=== PATIENT | male | born 1990 | race Caucasian/White ===

== ENCOUNTER 2024-02-14 22:43 | Emergency (ER) | payer OTHER, SELFPAY ==
--- OUTSIDE RECORDS SUMMARY | 2024-02-14 22:47 | XMS REPORT | Continuity of Care Document ---
Author Name Unknown Address [address] [facility] [address] [place] [address] [facility] thconnect Address [address] [facility] [address] [facility] [address] [place] [address] Care Team Providers Care Post Splitter Name Role Phone PCP, PATIENT DOES NOT HAVE A Primary Care Physic nicko Unavailable FAISAL KAPLAN Attending Clinician Unavailable Faisal Kaplan MD Attending Clinician [phone] Dot Hoang Attending Clinician Unavailable Sj Rogers Attending Clinician Unavailable Kranthi Gonzalez Attending Clinician Unavailable FAISAL KAPLAN Admitting Clinician Unavailable Physician, No Primary or Family Admitting Clinic nicko Unavailable No, Doc Admitting Clinician Unavailable Payers Payer Name Policy Type Policy Number Effective Date Expirati on Date Source Allergies, Adverse Reactions, Alerts Allergy Name Allergy Type Status Severity Reaction(s) Onset Date Inactive Date Treating Clinician Comments Source No Known Allergie s DA Active U 2021-09 00:00: 00 [facility] are [place] No Known Allergie s DA Active U 03-13 00:00: 00 [facility] NO KNOWN ALLERGIE S Drug Class Active [facility] Social History Social Habit Start Date Stop Date Quantity Comments Source Sexual orientation [facility] Sex Assigned At 1990 00:00:00 1990 00:00:00 [facility] Smoking Status Start Date Stop Date Source Tobacco smoking consumption unknown [facility] Medications Ordered Medication Name Filled Medication Name Start Date Stop Date Current Medication? Ordering Clinician Indication Dosage Frequency Signature (SIG) Comments Components Source HYDROcodone -acetaminop hen (NORCO) 10-325 mg tablet 1 tablet 11-11 07:30: 00 11-11 06:17 :00 No 1{tbl} 1 tablet, Oral, ONCE, 1 dose, On Tue11/11/23 at 0130, [facility] iopamidol (ISOVUE 370-500 mL) injection 60 mL 11-11 03:15: 00 11-11 03:15 :00 No [id number] 60mL 60 mL, Intravenou s, ONCE, 1 dose, On Tue11/10/23 at 2115, Routine [facility] NaCl 0.9% (NS) bolus infusion 1,000 mL 11-11 02:45: 00 11-11 03:52 :00 No 1000mL at 999 mL/hr, 1,000 mL, IV Piggyback, ONCE, 1 dose, On Tue11/10/23 at 2045, STAT [facility] ketorolac (TORADOL) injection 30 mg 11-11 02:30: 00 11-11 01:40 :00 No 30mg 30 mg, Slow IV Push, ONCE, 1 dose, On Tue11/10/23 at 2030, [facility] ondansetron (ZOFRAN (PF)) injection 4 mg 11-11 01:30: 00 11-11 01:24 :00 No 4mg 4 mg, Slow IV Push, ONCE, 1 dose, On Tue11/10/23 at 1930, [facility] morpHINE (4 mg/mL) injection 4 mg 11-11 01:30: 00 11-11 01:25 :00 No 4mg 4 mg, Slow IV Push, ONCE, 1 dose, On Nuria 11/10/23 at 1930, STAT [facility] ketorolac 10 mg tablet 11-11 00:00: 00 Yes [id number] 10mg Take 1 tablet by mouth every 6 (six) hours as needed for Pain (scale 4-6), Alternate with [place] for pain scale 4-6 or Alternate with [place] for pain scale 1-3. [facility] HYDROcodone -acetaminop hen 5-325 mg tablet 11-11 00:00: 00 11-18 05:59 :00 No [id number] 1{tbl} Take 1 tablet by mouth every 4 (four) hours as needed for Pain (scale 7-10) for up to 7 days. Indication s: acute pain [facility] Vital Signs Vital Name Observation Time Observation Value Comments S ource Systolic blood pressure 2023-11-11 06:00:00 125 mm[Hg] [facility] Diastolic blood pressure 2023-11-11 06:00:00 90 mm[Hg] [facility] Heart rate 2023-11-11 06:00:00 58 /min [facility] Body temperature 2023-11-11 06:00:00 36.33 Regina [facility] Respiratory rate 2023-11-11 06:00:00 13 /min [facility] Oxygen saturation in Arterial blood by Pulse oximetry 2023-11-11 06:00:00 99 /min [facility] Body height 2023-11-11 00:56:00 190.5 cm [facility] Body weight 2023-11-11 00:56:00 86.183 kg [facility] BMI 2023-11-11 00:56:00 23.75 kg/m2 [facility] Procedures Procedure Date / Time Performed Performing Clinician Source US GALL BLADDER 2023-11-11 05:03:00 Faisal Kaplan [facility] CT ABDOMEN PELVIS WO CONTRAST 2023-11-11 02:50:40 Faisal Kaplan [facility] COVID-19 (ID NOW RAPID TESTING) 2023-11-11 02:32:00 Faisal Kaplan [facility] CT CHEST PULMONARY ANGIOGRAM 2023-11-11 02:25:36 Faisal Kaplan [facility] URINE DRUG (IMMUNOASSAY) - COMPREHENSIVE DRUG SCREEN 2023-11-11 01:40:00 Faisal Kaplan [facility] URINALYSIS 2023-11-11 01:40:00 Faisal Kaplan [facility] CK (CREATINE KINASE) + MB 2023-11-11 01:18:00 Faisal Kaplan [facility] LIPASE 2023-11-11 01:18:00 Faisal Kaplan [facility] TROPONIN I 2023-11-11 01:18:00 Faisal Kaplan [facility] COMP. METABOLIC PANEL (67882) 2023-11-11 01:18:00 Faisal Kaplan [facility] CBC WITH DIFF 2023-11-11 01:18:00 Faisal Kaplan [facility] NOTICE OF PRIVACY PRACTICES 2023-11-11 00:46:55 Doctor Unassigned, [place] [facility] CONSENT/REFUSAL FOR DIAGNOSIS AND TREATMENT 2023-11-11 00:46:19 Doctor Unassigned, [place] [facility] Encounters Start Date/Time End Date/Time Encounter Type Admission Type Attending [facility] Facility Care Department Encounter ID Source 2023-11-10 19:01:00 2023-11-11 00:32:00 Emergency X FAISAL KAPLAN [facility] ERT [id number] [facility] 2023-11-10 19:01:00 2023-11-11 00:32:00 Emergency Faisal Kaplan [facility] [id number] [facility] 2023-09-20 21:30:00 2023-09-21 01:00:00 Emergency EM Dot Hoang [facility] [place] [id number] [facility] 2023-09-20 20:33:00 2023-09-20 21:55:00 Emergency EM Sj Rogers [facility] AERS [id number] [facility] 2022-08-20 19:26:00 2022-08-20 21:05:00 Emergency EM Kranthi Gonzalez [facility] [place] [id number] [facility] are [place] Results Test Description Test Time Test Comments Results Resul t Comments Source US GALL BLADDER 2023-10-21 3 05:27:32 Ordering physician: FAISAL KAPLAN Indication: Right upper quadrant pain Comparison: CT of the abdomen and pelvis dated 11/10/2023 Technique: Grayscale and color Doppler images of the right upper quadrantwere performed. Findings: The visualized aorta and IVC are normal in caliber. There isnormal color-flow in the main portal vein, with a normal vascular waveform.There is mildly increased echogenicity in the liver, without definite focallesion. The visualized pancreas is within normal limits. There are stones and sludge in the gallbladder without wall edema orsonographic Burton's sign. There is a nonmobile stone in the gallbladderneck. The common bile duct is prominent [facility] [id number] 03:20:18HS:Y Indication: Flank pain, kidney stone suspected ? Comparison: None RL: 4209 ORDERING PHYSICIAN:RANDEE GREY TECHNIQUE: CT angiogram of the chest with IV contrast. Multiplanar MIPreformatted images were obtained. CT of the abdomen and pelvis was obtainedwithout intravenous contrast. CT performed according to ALARA principles. CTA OF THE CHEST: FINDINGS:The lungs are clear. ? There is no pathologic lymphadenopathy. ? ? The heart is normal in size. ?No pulmonary embolus in the main or segmentalpulmonary arteries. Osseous structures are unremarkable. CT OF THE ABDOMEN AND PELVIS: Liver: Normal in attenuation. Gallbladder: 2.1 cm calculus in the distended gallbladder Spleen: Normal. Pancreas: Normal. Adrenal glands: Normal. Kidneys: There is contrast in the bilateral renal collecting system. Vasculature: Abdominal aorta is normal in caliber. Bowel: No evidence of bowel obstruction.The appendix is surgically absent. Bladder/reproductive organs: Urinary bladder is partially distended.Pr ostate measures up to 4.5 cm Bone and soft tissue: There is subtle sclerosis of the superior endplate ofthe L1 vertebral body with mild loss of vertebral body height. There is aSchmorl's node of the superior endplate of the T12 vertebral body.[facility] [id number] 03:20:18HS:Y Indication: Flank pain, kidney stone suspected ? Comparison: None RL: 4209 ORDERING PHYSICIAN:?FAISAL ?VASUT TECHNIQUE: CT angiogram of the chest with IV contrast. Multiplanar MIPreformatted images were obtained. CT of the abdomen and pelvis was obtainedwithout intravenous contrast. CT performed according to ALARA principles. CTA OF THE CHEST: FINDINGS:The lungs are clear. ? There is no pathologic lymphadenopathy. ? ? The heart is normal in size. ?No pulmonary embolus in the main or segmentalpulmonary arteries. Osseous structures are unremarkable. CT OF THE ABDOMEN AND PELVIS: Liver: Normal in attenuation. Gallbladder: 2.1 cm calculus in the distended gallbladder Spleen: Normal. Pancreas: Normal. Adrenal glands: Normal. Kidneys: There is contrast in the bilateral renal collecting system. Vasculature: Abdominal aorta is normal in caliber. Bowel: No evidence of bowel obstruction.The appendix is surgically absent. Bladder/reproductive organs: Urinary bladder is partially distended.Pr ostate measures up to 4.5 cm Bone and soft tissue: There is subtle sclerosis of the superior endplate ofthe L1 vertebral body with mild loss of vertebral body height. There is aSchmorl's node of the superior endplate of the T12 vertebral body.[facility]and[facility] [id number] 01:59:49* Test Item Value Reference Range Interpretation Comme nts TROPONIN I (test code = 6259473830) 0.000 ng/mL <=0.034 JAMIE (test code = JAMIE) Reference (Normal) Range (defined by the 99th percentile reference limit): <= 0.034 ng/mL Note: Cardiac troponin begins to rise 3-4 hours after the onset of ischemia. Repeat in 4-6 hours if the sample was drawn within 3-4 hours of the onset of the symptom and found normal. Diagnosis of myocardial injury is made with acute changes in cTn concentrations with at least one serial sample above the 99th percentile upper reference limit (URL), taken together with the patient's clinical presentation. Biotin has been reported to cause a negative bias, interpret results relative to patient's use of biotin. Lab Interpretation (test code = 57374-3) Normal [facility] (Creatine Kinase) + [id number] 01:56:32* Test Item Value Reference Range Interpretation Comme nts CK (test code = 1827982543) 139 U/L 33-194 CK-MB (test code = 7353871248) 0.61 ng/mL <=3.50 CKMB INDEX (test code = 4539397961) 0.4 % 0.0-2.5 JAMIE (test code = JAMIE) Biotin has been reported to cause a negative bias, interpret results relative to patient's use of biotin. Lab Interpretation (test code = 83687-6) [facility] (54790)2023-11-11 01:50:08* Test Item Value Reference Range Interpretation Comme nts NA (test code = 4269677674) 137 mmol/L 135-145 K (test code = 7701261110) 3.5 mmol/L 3.5-5.0 CL (test code = 8759030818) 105 mmol/L 98-108 CO2 TOTAL (test code = 2971722881) 24 mmol/L 23-31 AGAP (test code = 6925896181) 8 2-16 BUN (test code = 0754149950) 12 mg/dL 7-23 GLUCOSE (test code = 1490587348) 109 mg/dL 70-110 CREATININE (test code = 2160-0) 0.99 mg/dL 0.60-1.25 TOTAL BILI (test code = 2414929793) 0.5 mg/dL 0.1-1.1 CALCIUM (test code = 1703667813) 9.5 mg/dL 8.6-10.6 T PROTEIN (test code = 1519671293) 7.9 g/dL 6.3-8.2 ALBUMIN (test code = 6688094591) 4.8 g/dL 3.5-5.0 ALK PHOS (test code = 7950096044) 64 U/L 34-122 ALTv (test code = 1742-6) 20 U/L 5-50 AST(SGOT) (test code = 6998949377) 24 U/L 13-40 eGFR (test code = 97599-7) 103.2 mL/min/1.73m2 CKD-EPI eGFR (20 21). Assuming creatinine has been stable day-to-day for at least three months, the eGFR indicates Category G1 (>= 90 mL/min/1.73 m2) [facility] with Omyh3907-24-84 01:44:26* Test Item Value Reference Range Interpretation Comme nts WBC (test code = 6690-2) 7.89 4.20-10.70 RBC (test code = 789-8) 4.14 4.26-5.52 L HGB (test code = 718-7) 13.7 g/dL 12.2-16.4 HCT (test code = 4544-3) 38.8 % 38.4-49.3 MCV (test code = 787-2) 93.7 fL 81.7-95.6 MCH (test code = 785-6) 33.1 pg 26.1-32.7 H MCHC (test code = 786-4) 35.3 g/dL 31.2-35.0 H RDW-SD (test code = 18000-1) 41.6 fL 38.5-51.6 RDW-CV (test code = 788-0) 11.9 % 12.1-15.4 L PLT (test code = 777-3) 220 150-328 MPV (test code = 84977-6) 11.5 fL 9.8-13.0 NRBC/100 WBC (test code = 3728312259) 0.0 0.0-10.0 NRBC x10^3 (test code = 9535455366) See_Comment [Automated [employer]] The system which generated this result transmitted reference range: 10*3/?L. The reference range was not used to interpret this result as normal/abnormal. GRAN MAT (NEUT) % (test code = 770-8) 53.3 % IMM GRAN % (test code = 7117528120) 0.10 % LYMPH % (test code = 736-9) 35.1 % MONO % (test code = 5905-5) 10.3 % EOS % (test code = 713-8) 0.9 % BASO % (test code = 706-2) 0.3 % GRAN MAT x10^3(ANC) (test code = 0914732607) 4.21 10*3/uL 1.99-6.95 IMM GRAN x10^3 (test code = 3491840874) 0.00-0.06 LYMPH x10^3 (test code = 731-0) 2.77 10*3/uL 1.09-3.23 MONO x10^3 (test code = 742-7) 0.81 10*3/uL 0.36-1.02 EOS x10^3 (test code = 711-2) 0.07 10*3/uL 0.06-0.53 BASO x10^3 (test code = 704-7) 0.01-0.09 Lab Interpretation (test code = 20237-7) Abnormal [facility]- XR FOOT 3 + V [id number] 20:04:00 [facility] : 1990 Sex: MPatient Name: LEO SOTO Unit No: [id number] EXAMS: CPT: [id number] XR FOOT 3 + [place] [address] RADIOGRAPHS: Left foot, 3+ views COMPARISON: None available CLINICAL HISTORY: hit 4th toe with clara ladder yesterday 0800 FINDINGS: Acute comminuted and mildly displaced fracture of the 4th digit distal phalanx with intra-articular extension to the DIP joint. Overlying soft tissue swelling. IMPRESSION: Acute comminuted and mildly displaced intra-articular fracture of the 4th digit distal phalanx. at 2004 Reported and signed by: LIZ LAKE M.D. CC: Kranthi Gonzalez MD Technologist: ERMA Roche Time: DAP (Gy m2): Air Kerma (mGy): Trscr Dt/Tm: 08/20/2022 (2003) by:[email or web address] Orig Print D/T: S: 08/20/2022 (2006) BATCH NO: N/A Name: LEO SOTO [facility] Dank Phys: Kranthi Thompson MD [facility] : 1990 Age: 31 Sex: M [place] Loc: T.ERS Exam Date: 08/20/2022 Status: REG ER PH: FAX: PAGE 1 Signed Report Notes Date/Time Note Provider Source 2023-11-11 00:23:14 A45XxO4eCG5h2JU5JF69Re7kqFHsPkjTUeYX JbmpHaab2Q1OjqJTXBvEiOdZjhpB4243-23- 23T00:23:14 Pt given printed and verbal discharge instructions regarding chest pain gallstones, encouraged hydration,Prescriptions provided to preferred pharmacyDiscussed ibuprofen and to take with food to avoid GI distress.Discussed [place] 5 side affects and to avoid driving/operating machinery/or engaging in activities requiring alertness while taking.Pt verbalized understanding of instructions, pt awake alert oriented, resp reg unlabored, skin w/d, color appropriate for race, moves all ext well,pt encouraged to follow up with pcp and or gen surgeryAdvised to seek medical attention for new/prolonged/worsening of symptomsNo adverse reaction to meds given in ER noted upon dischargePIV d'cd, dressing to site, catheter in tact.Awake, alert oriented, resp reg unlabored, skin w/d, pt leaving amb with steady gait, in no apparent distress, [address]-1[place] department TzjuNA6406-88-07O59:24:04Emergency department NoteTXT1.2.840.162767.1.13.104.2.7.2 .779750|[id number] for patient oumq22775-6DhkpXBGNODQHPVAXnfdorslt C-CDA narrative wbvg172105992Wkyxln-Ycsgg McInnis BECKY[id number] XESKFMRWDKRABILCBGDAOH8902-21-22T26: 24:041.2.840.733843.1.72.3.15|1.2.84 0.632865.1.13.104.2.7.2.727879_20320 42192 Mehnaz Nicholas BECKY [facility] 2023-11-10 23:03:06 7RK7924BvbZLSC2ImELZKrOG9cAWGZULkTV8 a1iYg+oM0I0ucacZ2MYcXvQYjUjL0893-12- 22T23:03:06 Report given to BECKY Posadas 01607-4Mjwjzgjvo department EkacDI7825-82-03A80:03:24[facility] NoteTXT1.2.840.740967.1.13.104.2.7.2 .174373|[id number] for patient iflo49721-9FiykMQFXWCMUEOIXlnllnjia C-CDA narrative [id number] M Herrera RN[id number] ILBXXLDBOHKJORWXULWUDP5708-27-93U11: 03:241.2.840.529029.1.72.3.15|1.2.84 0.407964.1.13.104.2.7.2.727879_20320 37086 Yamel Winters RN [facility] 2023-11-10 19:11:14 9005uD5pUOuHQx4Cx1MTI0xXvPw+CZFlbcb1 iWopfJ1b5KEfr92/akeSlYa45FF47178-59- 22T19:11:14 Dr Kaplan at bedside for assessment 90968-5Objcpfidy department VkylAP5225-65-03G07:11:28[facility] NoteTXT1.2.840.808522.1.13.104.2.7.2 .694146|[id number] for patient uitb54692-9KpzbYXHZWEYARHODxefebifd C-CDA narrative [address][id number] TGKJOLQODZXWAQALOJFPEG4949-09-65D65: 11:281.2.840.017668.1.72.3.15|1.2.84 0.362150.1.13.104.2.7.2.727879_20319 30140 [facility] 2023-11-10 18:53:59 M25EoQSfFSbnaxRJHXj227TEFtPeNsI3P9aW M3Fd4NAni3rPoZccFA2IfuJiP+dm1969-458:53:59 Pt presents with right sided chest pain, stating its very hard for him to take a deep breath and it is very painful making him feel like he wants to pass out. Pt denies any cough or injury. 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 Pt states the pain and sob came out of no where after he took a shower. Pt vomited one time due to pain.EKG performed during triage 70137-9Pgkatdlbo department Triage jggjFF3765-80-36D73:58:12[facility] Triage noteTXT1.2.840.686197.1.13.104.2.7.2 .410238|[id number] for patient evzl93434-8Qovlsqzzm department NoteLNNARRATIVEFormatted C-CDA narrative text[address] Or[id number] EKBHVCEXDVUCGSEFJRPWAL8695-34-15U02: 58:121.2.840.625811.1.72.3.15|1.2.84 0.323885.1.13.104.2.7.2.727879_20319 69663 [facility] 2023-11-10 18:46:00 xvgv6aQjU66r/DYBhbk7hDYZCvOAiZpWo5YQ tJMttKH4ZX2uAvd0lX9NKuEe9a3f6127-22- 22T18:46:00 [facility] Emergency Department NotePatient Name: Leo Travis of : 1990 32 year old maleTreatment Room: [facility] Record Number: [id number] Care Physician: PATIENT DOES NOT HAVE A PCPPatient Escorted by: Self [9]Mode of Arrival: Personal means [1]EMS Treatment Prior to ED Arrival:DEPARTMENT DIRECTOR treatment: NoneTravel and Exposure Screening:SymptomsDoes patient have any of these symptoms?: (not recorded)Exposure ScreeningHas patient had contact with someone with a communicable disease in the last month?: (not recorded)Diseases exposed to:: (not recorded)Is Patient ?: (not recorded)Exposure Date: (not recorded)Chief Complaint:Chief ComplaintPatient presents with Chest Pain Shortness of BreathHistory of Present Illness:32 y.o. male with no med. History, now with acute onset right sided lower chest pain while taking shower. Denies any cough, no fever/chills, no vomiting.Past Medical History/Immunizations:No past medical history on file.Tetanus received in last 5 years: UnknownAllergies:No Known AllergiesPast Social History:Substance & Sexual ActivityNo substance use or sexual activity history on file.Past Surgical History:No past surgical history on file.Review of Systems:Review of SystemsConstitutional: Negative. Negative for chills and fever.HENT: Negative.Eyes: Negative.Respiratory: Positive for shortness of breath. Negative for cough and wheezing.Breasts: Negative.Cardiovascular: Positive for chest pain.Gastrointestinal: Negative.Genitourinary: Negative.Musculoskeletal: Negative.Skin: Negative.Neurological: Negative.Psychiatric/Behavioral: Negative.Endocrine: Endocrine negativePhysical Exam:ED Triage Vitals [11/10/23 1856]Weight 86.2 kg (190 lb)Actual or estimatedHeight 1.905 m (6' 3")BP (!) 123/97Pulse 74Resp 20Temp 36.7 ?C (98.1 ?F)Temp srcSpO2 100 %Measured on Room airPhysical ExamVitals and nursing note reviewed.Constitutional:General: He is not in acute distress.Appearance: Normal appearance. He is not ill-appearing, toxic-appearing or diaphoretic.HENT:Head: Normocephalic.Nose: Nose normal.Mouth/Throat:Mouth: Mucous membranes are moist.Eyes:Pupils: Pupils are equal, round, and reactive to light.Cardiovascular:Rate and Rhythm: Normal rate and regular rhythm.Pulses: Normal pulses.Heart sounds: Normal heart sounds.Pulmonary:Effort: Pulmonary effort is normal. No respiratory distress.Breath sounds: Normal breath sounds.Abdominal:Palpations: Abdomen is soft.Musculoskeletal:General: Normal range of motion.Skin:General: Skin is warm.Capillary Refill: Capillary refill takes less than 2 seconds.Neurological:General: No focal deficit present.Mental Status: He is alert and oriented to person, place, and time.Psychiatric:Mood and Affect: Mood normal.Behavior: Behavior normal.Radiology:US GALL BLADDERFinal ResultOrdering physician: FAISAL Cruzdication: Right upper quadrant painComparison: CT of the abdomen and pelvis dated 11/10/2023Technique: Grayscale and color Doppler images of the right upper quadrantwere performed.Findings: The visualized aorta and IVC are normal in caliber. There isnormal color-flow in the main portal vein, with a normal vascularwaveform.There is mildly increased echogenicity in the liver, without definitefocallesion. The visualized pancreas is within normal limits.There are stones and sludge in the gallbladder without wall edema orsonographic Burton's sign. There is a nonmobile stone in the gallbladderneck. The common bile duct is prominent at 9 mm.IMPRESSIONImpression:Cholelithias is and sludge with gallbladder distention but no wall edema orsonographic Burton's sign to definitely suggest acute cholecystitis. Thereis a nonmobile stone in the gallbladder neck measuring 20 mm, which may beimpacted.The extrahepatic common bile duct is prominent at 9 mm, andcholedocholithiasis cannot be excluded. No intrahepatic biliary ductaldilatation is appreciated.RL: 460AFC: [id number] signed by Roro Frances MD, PhD at 11/10/2023 11:27 PMCT ABDOMEN PELVIS WO CONTRASTFinal ResultHS:YIndication: Flank pain, kidney stone suspectedComparison: NoneRL: 4209ORDERING PHYSICIAN: FAISAL PUGHUTTECHNIQUE: CT angiogram of the chest with IV contrast. Multiplanar MIPreformatted images were obtained. CT of the abdomen and pelvis wasobtainedwithout intravenous contrast. CT performed according to ALARA principles.CTA OF THE CHEST:FINDINGS:The lungs are clear. There is no pathologic lymphadenopathy.The heart is normal in size. No pulmonary embolus in the main orsegmentalpulmonary arteries.Osseous structures are unremarkable.CT OF THE ABDOMEN AND PELVIS:Liver: Normal in attenuation.Gallbladder: 2.1 cm calculus in the distended gallbladderSpleen: Normal.Pancreas: Normal.Adrenal glands: Normal.Kidneys: There is contrast in the bilateral renal collecting system.Vasculature: Abdominal aorta is normal in caliber.Bowel: No evidence of bowel obstruction.The appendix is surgically absent.Bladder/reproductive organs: Urinary bladder is partially distended.Prostate measures up to 4.5 cmBone and soft tissue: There is subtle sclerosis of the superior endplateofthe L1 vertebral body with mild loss of vertebral body height. There is aSchmorl's node of the superior endplate of the T12 vertebral body.IMPRESSION1. No pulmonary embolus in the main or segmental pulmonary arteries.2. Subtle sclerosis of the superior endplate of the L1 vertebral body withmild loss of vertebral body height. Findings could be related to an ageindeterminate fracture. CT CHEST PULMONARY ANGIOGRAMFinal ResultHS:YIndication: Flank pain, kidney stone suspectedComparison: NoneRL: 4209ORDERING PHYSICIAN: FAISAL PUGHUTTECHNIQUE: CT angiogram of the chest with IV contrast. Multiplanar MIPreformatted images were obtained. CT of the abdomen and pelvis wasobtainedwithout intravenous contrast. CT performed according to ALARA principles.CTA OF THE CHEST:FINDINGS:The lungs are clear. There is no pathologic lymphadenopathy.The heart is normal in size. No pulmonary embolus in the main orsegmentalpulmonary arteries.Osseous structures are unremarkable.CT OF THE ABDOMEN AND PELVIS:Liver: Normal in attenuation.Gallbladder: 2.1 cm calculus in the distended gallbladderSpleen: Normal.Pancreas: Normal.Adrenal glands: Normal.Kidneys: There is contrast in the bilateral renal collecting system.Vasculature: Abdominal aorta is normal in caliber.Bowel: No evidence of bowel obstruction.The appendix is surgically absent.Bladder/reproductive organs: Urinary bladder is partially distended.Prostate measures up to 4.5 cmBone and soft tissue: There is subtle sclerosis of the superior endplateofthe L1 vertebral body with mild loss of vertebral body height. There is aSchmorl's node of the superior endplate of the T12 vertebral body.IMPRESSION1. No pulmonary embolus in the main or segmental pulmonary arteries.2. Subtle sclerosis of the superior endplate of the L1 vertebral body withmild loss of vertebral body height. Findings could be related to an ageindeterminate fracture. XR CHEST 1 VWPreliminary ResultEXAM: XR CHEST 1 VW 11/10/2023 7:29 PMHISTORY: 32 years old Male with right sided chest pain, sobTECHNIQUE: Portable AP view of the chest.COMPARISON: NoneFINDINGS :Lungs and pleura: The lungs are well-expanded. Bilateral lower lungopacities are with blunting of costophrenic angles, which may be fromsmallpleural effusion with associated atelectasis. No focal consolidation, orpneumothorax.Cardiomediastinal: The cardiomediastinal silhouette is normal accountingfor technique.Musculoskeletal: No acute osseous abnormality.Preliminary Report Dictated by Resident: Allison Westbrook Results:Lab ResultsCBC WITH DIFF - AbnormalResult Value Ref RangeWBC 7.89 4.20 - 10.70 10*3/?LRBC 4.14 (*) 4.26 - 5.52 10*6/?LHGB 13.7 12.2 - 16.4 g/dLHCT 38.8 38.4 - 49.3 %MCV 93.7 81.7 - 95.6 fLMCH 33.1 (*) 26.1 - 32.7 pgMCHC 35.3 (*) 31.2 - 35.0 g/dLRDW-SD 41.6 38.5 - 51.6 fLRDW-CV 11.9 (*) 12.1 - 15.4 %PLT 220 150 - 328 10*3/?LMPV 11.5 9.8 - 13.0 fLNRBC/100 WBC 0.0 0.0 - 10.0 /100 WBCsNRBC x10^3 <0.01 10*3/?LGRAN MAT (NEUT) % 53.3 %IMM GRAN % 0.10 %LYMPH % 35.1 %MONO % 10.3 %EOS % 0.9 %BASO % 0.3 %GRAN MAT x10^3(ANC) 4.21 1.99 - 6.95 10*3/uLIMM GRAN x10^3 <0.03 0.00 - 0.06 10*3/uLLYMPH x10^3 2.77 1.09 - 3.23 10*3/uLMONO x10^3 0.81 0.36 - 1.02 10*3/uLEOS x10^3 0.07 0.06 - 0.53 10*3/uLBASO x10^3 <0.03 0.01 - 0.09 10*3/uLURINALYSIS - AbnormalAPPEARANCE Clear ClearCOLOR Fela (*) YellowPH 6.0 4.8 - 8.0SP GRAVITY 1.021 1.003 - 1.030GLU U QUAL Normal NormalBLOOD Negative NegativeKETONES Negative NegativePROTEIN Negative NegativeUROBILIN Normal NormalBILIRUBIN Negative NegativeNITRITE Negative NegativeLEUK ZACH Negative NegativeRBC/HPF 3 0 - 3 HPFWBC/HPF 1 0 - 5 HPFBACTERIA Negative NegativeMUCOUS Moderate (*) Negative LPFSPERM <1 <=1 HPFURINE DRUG (IMMUNOASSAY) - COMPREHENSIVE DRUG SCREEN - AbnormalAMPHET Negative NegativeBARB U Negative NegativeBENZO U Negative NegativeCocaine Metabolite Negative NegativeMETHADONE Negative NegativeOPIATES Negative NegativePCP Negative NegativeTHC Presumptive Positive (*) NegativeTROPONIN I - NormalTROPONIN I 0.000 <=0.034 ng/mLCK (CREATINE KINASE) + MB - NormalCK 139 33 - 194 U/LCK-MB 0.61 <=3.50 ng/mLCKMB INDEX 0.4 0.0 - 2.5 %COVID-19 (ID NOW RAPID TESTING) - LcuckoHMQP-LkP-0 Rapid ID NOW Not Detected Not DetectedLIPASE - NormalLIPASE 41 0 - 220 U/LCOMP. METABOLIC PANEL (00973)NA 137 135 - 145 mmol/LK 3.5 3.5 - 5.0 mmol/LCL 105 98 - 108 mmol/LCO2 TOTAL 24 23 - 31 mmol/LAGAP 8 2 - 16BUN 12 7 - 23 mg/dLGLUCOSE 109 70 - 110 mg/dLCREATININE 0.99 0.60 - 1.25 mg/dLTOTAL BILI 0.5 0.1 - 1.1 mg/dLCALCIUM 9.5 8.6 - 10.6 mg/Rodolfo PROTEIN 7.9 6.3 - 8.2 g/dLALBUMIN 4.8 3.5 - 5.0 g/dLALK PHOS 64 34 - 122 U/LALTv 20 5 - 50 U/LAST(SGOT) 24 13 - 40 U/LeGFR 103.2 mL/min/1.39e4RKB:If EKG completed, see Procedure Note.Orders and Treatments:Orders Placed This EncounterProcedures XR CHEST [address] CHEST PULMONARY ANGIOGRAM CT ABDOMEN PELVIS WO CONTRAST US GALL BLADDER Cbc with Diff Comp. Metabolic Panel (47137) Troponin I CK (Creatine Kinase) + MB Urinalysis Urine Drug (Immunoassay) - Comprehensive Drug Screen COVID-19 (ID NOW TESTING) Lab Only COVID Interpretation LipaseOrders Placed This EncounterMedications morpHINE (4 mg/mL) injection 4 mg ondansetron (ZOFRAN (PF)) injection 4 mg ketorolac (TORADOL) injection 30 mg NaCl 0.9% (NS) bolus infusion 1,000 mL iopamidol (ISOVUE 370-500 mL) injection 60 mLFirst Provider Eval:ED EventsDate/Time Event User Dndajxyj96/22/241904 Medical Screening Begins FAISAL KAPLAN MD --11/10/231904 First Provider Evaluation FAISAL KAPLAN MD --ED COURSEDiagnosis/Impression as of 11/11/23 0006Chest pain, unspecified typeGallstone (impacted)Procedures:ProceduresMDM:M edical Decision MakingAmount and/or Complexity of Data ReviewedLabs: ordered.Radiology: ordered.RiskPrescription drug management.Parenteral controlled substances.A) Gallstone Disease, Biliary ColicDisposition/Condition: Home, Toradol/[place], strict ER warnings, close f/u with Dr. Sandoval General Surgery.ED DispositionNoneDischarge Medications:Patient's MedicationsNo medications on fileFollow-up: Dr. Sandoval--General SurgeryElectronically signed by:Faisal Kaplan MD11/11/23 0000 [id number] Emergency department MjngBH8087-12-31N74:00:22Physician Emergency department [id number] .[id number] for patient [id number] department NoteLNNARRATIVEFormatted C-CDA narrative textUT[address] N[id number] AREAGDUHUTPCTUTCNLVNEL4050-02-24F78: 00:221.2.840.760622.1.72.3.15|1.2.84 [id number]_[id number] [address] [facility] 2023-09-21 00:28:00 [id number]+O5+jk FCaihbp+[id number]nYx xtK01198-52-18D99:28:00 [facility])EMERGENCY PROVIDER REPORTREPORT#:[id number] REPORT STATUS: SignedDATE:09/21/23 TIME:27 PATIENT: LEO SOTO UNIT #: [id number]#: [id number] ROOM/BED:: 89 AGE: 32 SEX: M PCP PHYS: No Primary or Family PhysicianSERVICE AUTHOR: No Nelson APRN * ALL edits or amendments must be made on the electronic/computer document * No Nelson 09/21/23 0028:HPI-Rash/Abscess/Cellulitis Free Text HPI NotesFree Text HPI NotesPatient is a 32 year old male coming from [facility] via personal vehicle. Patient reports that MD at other facility recommended an ultrasound of left nipple/chest area due to concern of abscess. Patient reports left nipple pain/induration for the past 2 days. Patient states no injury, trauma, or discharge to the area. Patient denies fever, chills, or chest pain. Patient anxious because he reports familial history of brother with cancer. GeneralInitial Greet Date/Time 09/20/232308 PresentationChief Complaint Abscess, Red area, Return visit, abscessHx Obtained From Patient, Spouse Risk-Rash/Abscess/CellulitisALT-70 Score ALT-70 Score Response Value Legs Asymmetric No (0) 0 Age 70 or Older No (0) 0 Elev WBC >=10,000 No (0) 0 Elev Pulse >=90bpm No (0) 0 Total 0 ALT-70 Interpretation <3, pseudocellulit likely Review of Systems ROS StatementsAll systems rev neg except as marked. Focused Review of SystemsRespiratoryDenies: Cough, non-productive, Cough, productive, Shortness of breath. CardiovascularDenies: Chest pain, Syncope. GIDenies: Abdominal pain, Diarrhea, Nausea, Vomiting. MusculoskeletalDenies: Back pain, Extremity pain. SkinReports: Abscess, Swelling. Past Medical History - AdultStated Complaint ISAIAH BUMP ON LEFT NIPPLEAllergiesCoded Allergies:No Known Allergies (03/13/15) Home MedicationsReported MedicationsONDANSETRON (ZOFRAN) 4 MG PO Q8H PRN PRN NAUSEA. IBUPROFEN (MOTRIN) 600 MG PO Q8H PRN PRN PAIN Calculated Suicide Risk (nurs) No riskFamily History:Reports: Cancer. Smoking status for patients 13 years old or older: Never Smoker Physical Exam Vital SignsReview of Vital Signs Reviewed Focused PEGeneral/Const General/Const Awake, Alert, Well appearingResp/Chest Respiratory/Chest Breath sounds NL, Breath sounds = bilat, No respiratory distress, No rales, No rhonchi, No wheezingCardiovascular Cardiovascular Heart rate NL, Regular rhythm, Heart sounds NL, Peripheral circulation NLSkin Skin Atraumatic, Warm Color/Condition Erythema generalized. Abscess Notes1 cm by 2 cm indurated abscess under left nipple. No discharge, painful to touch. Area is warm, erythematic, and tender. Re-Evaluation MDM Free Text MDM NotesFree Text MDM NotesThis patient presents with a painful 1cm x 2cm area of induration and erythema, concerning for an abscess of left nipple. The abscess was not I D'd because of the location/unknown extent of induration. There is no lymphangitic spread visible. Low concern for osteomyelitis. Patient is not immunocompromised, and there is no bullae, pain out of proportion, or rapid progression concerning for necrotizing fasciitis. Patient to be discharged home with antibiotics with follow up with their PCP for outpatient ultrasound. Re-Evaluation/ProgressRe-Evaluation/ Progress Text/Dict NotePatient and spouse upset about unavailability of ultrasound. Patient and spouse informed due to patient's clinical presentation it is recommended that the patient return tomorrow when ultrasound is available, they could be transferred to another facility, or leave AMA. Patient upset because he was informed at another [facility] that he was guaranteed an ultrasound at our facility. Patient agreesto being discharged home because he is tired, and will follow up with PCP tomorrow to obtain order for outpatient ultrasound. Patient provided referals toPCP in the area, and educated on antibiotic regimen, warm compress use, and whento return to the ED. Patient verbalized unerstanding. Time of Re-Eval 48 Re-Eval Status Unchanged ED CourseMedication(s) OrderedMedication(s) Ordered:Central Nervous System Agents Sig/Guillermo Start time Last Medication Dose Route Stop Time Status Admin Hydrocodone Bitart/ 1 TAB X1ED STA 09/218 DC 09/21 Acetaminophen PO 09/219 0052 Differential DiagnosisDifferential Diagnosis Cellulitis, Contact dermatitis, Herpes zoster, Insect bite, Skin abscess Patient Discharge Departure Vital Signs/ConditionCondition Stable Clinical ImpressionClinical ImpressionPrimary Impression: AbscessSecondary Impressions: Nipple pain Disposition DecisionDischarge )( Discharged to Home Yes )( Time 005 )( Date 09/21/23 Discharge/Care PlanCounseled Regarding Diagnosis, Lab results, Prescriptions, Need for follow-up, When to return to EDPrescriptionsKetorolacBactrim(Auto ) PrescriptionsCurrent Visit ScriptsSULFAMETHOXAZOLE/TMP (BACTRIM DS 800/160 MG) 1 TAB PO Q12H 10 Days #20 TABS UNTIL FINISHED KETOROLAC (TORADOL) 10 MG PO Q6H PRN PRN PAIN KETOROLAC (TORADOL) 10 MG PO Q6H PRN PRN PAIN #20 TABS Prescriptions Reviewed Risks, Benefits, Alternative treatmentPatient Instructions Abscess Abx TxAdditional InstructionsBe sure to take medication as prescribed. Follow up with PCP in 2-5 days for outpatient ultrasound. Please apply warm compresses to the area 3 times a day for 15 minutes. Return to the ED if redness extends the area, symptoms worsen, or pain does not improve. ReferralsProvider Referral: Boogie Flower MD Address: [address] [place], [place] [id number] Provider Referral: Tucker Fuentes MD Address: [address] [place] [address] Provider Referral: Andrez Lloyd MD Address: [address] [facility] [address] [place] [address] Provider Referral: Dominic Kevin DO Address: [address] [place] [address] Provider Referral: Simone Castaneda MD Address: [address] [facility] [address] [place] [address] Provider Referral: Yfn Varghese MD Address: [address] [place] [address] [address] [place] [address] Provider Referral: Nettie Louise MD Address: [address] [place], [place] [id number] Provider Referral: Alexandria Blackwell MD Address: [address] [facility] [address] [place] [address] Provider Referral: Serenity Card APRNNP Address: [address] [address] Provider Referral: Susan Dawkins Address: [address] [place] [address] Provider Ref[facility]: Marg[facility] Franco [facility] Address: [address] [place] [address] Provider Referral: Susana Brannon MD Address: [address] [place] [address] Provider Referral: Brenda Nassar MD Address: [address] [place] [address] Departure FormsWORK/SCHOOL EXCUSE-CAREGIVER 2 Discharge NoteI have spoken with the patient and/or caregivers. I have explained the patient'scondition, diagnoses and treatment plan based on the information available to meat this time. I have answered the patient's and/or caregiver's questions and addressed any concerns. The patient and/or caregivers have as good an understanding of the patient's diagnosis, condition and treatment plan as can beexpected at this point. The vital signs have been stable. The patient's condition is stable and appropriate for discharge from the emergency department. The patient will pursue further outpatient evaluation with the primary care physician or other designated or consulting physician as outlined in the discharge instructions. The patient and/or caregivers are agreeable to this planof care and follow-up instructions have been explained in detail. The patient and/or caregivers have received these instructions in written format and have expressed an understanding of the discharge instructions. The patient and/or caregivers are aware that any significant change in condition or worsening of symptoms should prompt an immediate return to this or the closest emergency department or a call to 911. Dot Hoang 09/21/23 0353:Physical Exam Vital SignsVital SignsFirst Documented: Result Date Time Pulse Ox 98 09/20 2152 B/P 138/86 09/20 2152 B/P Mean 103 09/20 2152 O2 Delivery Room air 09/20 2152 Temp 35.9 09/20 2152 Pulse 77 09/20 2152 Resp 17 09/20 2152 Last Documented: Result Date Time Pulse Ox 98 09/210 B/P 133/78 09/21 99 B/P Mean 96 09/21 99 O2 Delivery Room air 09/21 99 Temp 36.2 09/21 99 Pulse 74 09/21 99 Resp 17 09/21 99 Patient Discharge Departure Vital Signs/ConditionVital SignsFirst Documented: Result Date Time Pulse Ox 98 09/20 2152 B/P 138/86 09/20 2152 B/P Mean 103 09/20 2152 O2 Delivery Room air 09/20 2152 Temp 35.9 09/20 2152 Pulse 77 09/20 2152 Resp 17 09/20 2152 Last Documented: Result Date Time Pulse Ox 98 09/21 99 B/P 133/78 09/21 99 B/P Mean 96 09/21 99 O2 Delivery Room air 09/21 99 Temp 36.2 09/21 99 Pulse 74 09/21 99 Resp 17 09/21 99 All vital signs available at the time of this entry have been reviewed. Supervising Physician Note MidLv Saw Pt AloneI have reviewed the PA/WOODEN FURNITURE POLISHER's note and plan of care. I was available for consultation as needed at all times during the patient's visit in the emergency department. I agree with the clinical impression, plan and disposition. at 0353 at 2145 RPT #: [id number] OF REPORTEDEmergency department womyrd5417-28-92J91:28:00L.[id number] for patient zaivGVKJLWWTHICYPE5115-90-89L81:53:4 6 [facility] 2023-09-20 20:39:00 [id number]+[id number] iRIE5550-60-18T03:39:00 [facility] ([facility])EMERGENCY PROVIDER REPORTREPORT#:[id number] REPORT STATUS: SignedDATE:09/20/23 TIME: 2038 PATIENT: LEO SOTO UNIT #: [id number]#: [id number] ROOM/BED:AGE: 32 SEX: M PCP PHYS: No Primary or Family PhysicianSERVICE DT: AUTHOR: Sj Rogers MD * ALL edits or amendments must be made on the electronic/computer document * HPI-Rash/Abscess/Cellulitis Free Text HPI NotesFree Text HPI NotesPatient presents to emergency department for painful swelling and redness located under her left nipple. Patient states has been there for the past 2 days. No fever chills nausea vomiting diarrhea chest pain shortness of breath abdominal pain. Patient had no injury to the area. GeneralInitial Greet Date/Time 09/20/232033 PresentationChief Complaint Abscess, Red area, Tender/swollen area Review of Systems ROS StatementsAll systems rev neg except as marked. Basic Review of SystemsBasic ROS : No dysuria/frequency, HEM: No bleeding/bruising, NEURO: No change MS, NEURO: No focal deficit Focused Review of SystemsConstitutionalDenies: Chills, Fatigue, Fever, Malaise. RespiratoryDenies: Cough, non-productive, Cough, productive, Shortness of breath. CardiovascularDenies: Chest pain, Dyspnea on exertion, Edema, Orthopnea. GIDenies: Abdominal pain, Anorexia, Nausea, Vomiting. MusculoskeletalDenies: Extremity pain, Extremity swelling, Joint pain, Joint swelling. SkinReports: Abscess, Erythema, Swelling. Past Medical History - AdultStated Complaint PAINFUL LUMP UNDER THE NIPPLEAllergiesCoded Allergies:No Known Allergies (03/13/15) Home MedicationsActive ScriptsSULFAMETHOXAZOLE/TMP (BACTRIM DS 800/160 MG) 1 TAB PO Q12H 10 Days #20 TABS Prov: 09/21/23KETOROLAC (TORADOL) 10 MG PO Q6H PRN PRN PAIN KETOROLAC (TORADOL) 10 MG PO Q6H PRN PRN PAIN #20 TABS Prov: 09/21/23 Reported MedicationsONDANSETRON (ZOFRAN) 4 MG PO Q8H PRN PRN NAUSEA. IBUPROFEN (MOTRIN) 600 MG PO Q8H PRN PRN PAIN Physical Exam Vital SignsVital SignsFirst Documented: Result Date Time Pulse Ox 98 09/20 2044 B/P 145/90 09/20 2044 B/P Mean 108 09/20 2044 O2 Delivery Room air 09/20 2044 Temp 98.4 09/20 2044 Pulse 76 09/20 2044 Resp 16 09/20 2044 Last Documented: Result Date Time Pulse Ox 98 09/20 2044 B/P 145/90 09/20 2044 B/P Mean 108 09/20 2044 O2 Delivery Room air 09/20 2044 Temp 98.4 09/20 2044 Pulse 76 09/20 2044 Resp 16 09/20 2044 Review of Vital Signs Reviewed Basic Physical ExamBasic PE HEAD: Atraumatic/NC, EYES: PERRL, conj clear, ENT: Membranes moist, NECK: Supple, RESP: No resp distress, CV: Reg rate rhythm, EXT: No gross abnormality Focused PEGeneral/Const General/Const Awake, Alert, No acute distress, Well appearing, Well developedResp/Chest Respiratory/Chest Atraumatic, No respiratory distress, No retractionsCardiovascular Cardiovascular Heart rate NL, Regular rhythm, Cap refill not delayedSkin Text/Dict NotesArea of erythema with edema to left nipple. Tenderness to palpation of this area. Re-Evaluation MDM Free Text MDM NotesFree Text MDM NotesPatient presents to emergency department for swelling and redness to area under left nipple. Physical exam is concerning for possible abscess and ultrasound required. Patient given [facility] for[facility] to wait and return results but patient refused stating he would rather drive to another hospital to have ultrasound performed. Patient understands the risks involved and states he will go directly. As patient has no immediately life-threatening issue patient was medically screened and discharged with instructions to return if he changes his mind. Differential DiagnosisDifferential Diagnosis Abscess, Cellulitis, Contact dermatitis, Erysipelas, Erythema multiforme, Eczema, Impetigo, Skin abscess Patient Discharge Departure Vital Signs/ConditionVital SignsFirst Documented: Result Date Time Pulse Ox 98 09/20 2044 B/P 145/90 09/20 2044 B/P Mean 108 09/20 2044 O2 Delivery Room air 09/20 2044 Temp 98.4 09/20 2044 Pulse 76 09/20 2044 Resp 16 09/20 2044 Last Documented: Result Date Time Pulse Ox 98 09/20 2044 B/P 145/90 09/20 2044 B/P Mean 108 09/20 2044 O2 Delivery Room air 09/20 2044 Temp 98.4 09/20 2044 Pulse 76 09/20 2044 Resp 16 09/20 2044 All vital signs available at the time of this entry have been reviewed. Clinical ImpressionClinical ImpressionPrimary Impression: Chest swelling Disposition DecisionOther )( Time 2039 )( Date 09/20/23 LUCILA-screened discharged Yes at 0246RPT #:[id number] OF REPORTEDEmergency department xkmykx2548-00-40Q14:39:00G.[id number] for patient kcgaENINSUTULHCAHF9682-60-11L61:47:1 8 [facility] 2022-08-20 19:35:00 [id number] [id number]+[id number]+BcjzmbBhKMRHEcs8uaP1Pf1e3C [id number]:35:00 [facility] ([facility])EMERGENCY PROVIDER REPORTREPORT#:[id number] REPORT STATUS: SignedDATE:08/20/22 TIME: 1934 PATIENT: LEO SOTO UNIT #: [id number]#: [id number] ROOM: BED:AGE: 31 SEX: M PCP PHYS: No,DocSERVICE AUTHOR: Blake Angel WO[employer] F[employer] POLISHER APRNNP * ALL edits or amendments must be made on the electronic/computer document * Blake Angel 08/20/221934:HPI-Foot Prob/Inj GeneralConfirmed Patient YesPatient Type New patientInitial Greet Date/Time 08/20/22 1927Assumed Care at Time 1934 Date 08/20/22 PresentationChief Complaint Toe injury L, Toe pain L, Toe swelling LHx Obtained From PatientOnset Occurred YesterdaySymptom Duration Waxes and wanesProgression since Onset Waxes and wanesContext of Onset WorkplaceCaused by Accidental, Blunt injuryTiming of Trauma Date of Trauma 08/19/22 Time of Trauma 1500Location: Left Foot Dorsal surface, ToeQuality AchingRadiation Does not radiateSeverity: Onset ModerateSeverity: Current ModerateAssociated withReports: Painful extremity, Swollen extremity. Denies: Cold extremity, Fever, Joint swelling, Neuro symptoms pre-arriv, Numbness, Rash, Weak extremity, Weakness. Exacerbated by Movement, PalpationRelieved by Position, Rest ContextImmunization Status General Unknown Review of Systems ROS StatementsAll systems rev neg except as marked.Complete sys rev neg except as marked. Basic Review of SystemsBasic ROS EYES: No redness, ENT: No sore throat, RESP: No SOB, CV: No chest pain, GI: No abd pain/vomiting, : No dysuria/frequency, HEM: No bleeding/bruising,PSYCH: NL thought content Focused Review of SystemsConstitutionalDenies: Chills, Fatigue, Fever, Lethargy, Malaise, Recent wt loss, Weakness - generalized. MusculoskeletalReports: Extremity pain, Extremity swelling. Denies: Back pain, Joint pain, Joint swelling, Lumbar pain, Myalgia, Neck pain, Thoracic pain. SkinReports: Contusion. Denies: Abrasion, Abscess, Burn, Diaphoresis, Erythema, Itching, Jaundice, Laceration, Rash, Swelling, Ulceration. NeurologicDenies: Abnormal movement, Bladder dysfunction, Bowel dysfunction, Change LOC, Confusion, Dizziness, Focal weakness, Generalized weakness, Headache, Lightheaded, Numbness, Problem walking, Seizure, Shaking, Slurred speech, Spinning sensation, Syncope, Tingling, Unable to speak, Vision change. Additional Review of SystemsRespiratoryDenies: Cough, non-productive, Cough, productive, Dyspnea on exertion, Hemoptysis, Parox nocturnal dyspnea, Pleuritic pain, Shortness of breath, Wheezing. CardiovascularDenies: Chest pain, Dyspnea on exertion, Edema, Orthopnea, Palpitations, Parox nocturnal dyspnea, Syncope. GIDenies: Abdominal pain, Anorexia, Belching, Bloody/tarry stool, Constipation, Diarrhea, Dysphagia, Hematemesis, Hematochezia, Mucousy stool, Melena, Nausea, Rectal pain, Vomiting. MaleDenies: Dysuria, Flank pain, Hematuria, Incontinence, Nocturia, Penile discharge, Penile lesion, Scrotal swelling, Testicular pain, Testicular swelling, Urinaryfrequency, Urinary urgency, Urination decreased, Urination increased. PsychiatricDenies: Agitation, Anxiety, Change mental status, Confusion, Delusional, Depression, Hallucinations, auditory, Hallucinations, visual, Homicidal ideation, Hostile, Insomnia, Stress, Suicidal ideation, Unable to control self. Past Medical History - AdultStated Complaint LEFT 4TH TOE INJURY, LACERATIONAllergiesCoded Allergies:No Known Allergies (08/20/22) Review of Nursing Notes Rev avail, and agreePt reports no significant: Family history, Social historyFamily History:Denies: Abdominal aortic aneurysm, Anemia, Asthma, CAD < 40 yrs old, Cancer, Coagulopathy, Dementia/Alzheimer's dis, Depression/mood disorder, Diabetes, Heart disease, Hypertension, Kidney disease/stones, Seizure disorder, Stroke/TIA, Subarachnoid hemorrhage, Sudden cardiac , Thyroid disorder, , Connective tissue dis, Gallbladder disease, Hyperlipidemia, Neurofibromatosis, Sickle cell disease. Alcohol Use Denies EtOH useDrug Use Denies recreational drugsSmoking status for patients 13 years old or older: Never SmokerAmbulatory Status Independent Physical Exam Vital SignsVital SignsFirst Documented: Result Date Time Pulse Ox 99 08/20 1931 B/P 112/70 08/20 1931 B/P Mean 83.8 08/20 1931 Temp 36.7 08/20 1931 Pulse 107 08/20 1931 Resp 18 08/20 1931 Last Documented: Result Date Time Pulse Ox 98 08/20 2118 B/P 122/73 08/20 2118 B/P Mean 89 08/20 2118 Pulse 102 08/20 2118 Resp 18 08/20 2118 Temp 36.7 08/20 1931 Review of Vital Signs Reviewed Basic Physical ExamBasic PE GEN: Well appearing/NAD, HEAD: Atraumatic/NC, EYES: PERRL, conj clear, ENT: Membranes moist, NECK: Supple, RESP: No resp distress, CV: Reg rate rhythm, ABD: Soft/non-tender, UP EXT: No gross abnormal, SKIN: No rashes, warm/dry, NEURO: alert oriented, NEURO: gross movement NL, PSYCH: NL thought content Focused PEGeneral/Const General/Const Awake, Alert, Well developed, CooperativeMS Ankle/Foot Left Foot Swelling present, Tenderness present. Negative: Tender base 5th mtarsal, Tender calcaneus, Tender plantar fascia, Ecchymosis present, Erythema present, Warmth present, ROM reduced, Joint effusion present, Tendon injury extensor, Tendon injury flexor, Deformity present, Open fracture present, Pulse dorsalis ped absent, Pulse dors ped decreased, Neuro deficit present, Amputation. Neurologic Neurologic Oriented X3, Speech NL, No motor deficits, No sensory deficits, CNII - XII intact, Reflexes equal bilat, Cerebellar NL, Memory NL, Gait NL Additional PEMS Head Head Atraumatic, NormocephalicMS Neck Neck Atraumatic, Supple, No meningismus, Full range of motionResp/Chest Respiratory/Chest Atraumatic, Breath sounds NL, Breath sounds = bilat, No respiratory distressCardiovascular Cardiovascular Heart rate NL, Regular rhythm, Heart sounds NL, No gallopAbdomen/GI Abdomen/GI Atraumatic, Soft, Non-tender, BS normoactivePsychiatric Psychiatric Affect NL, Mood NL, Not suicidal, Not homicidal, No hallucinations, Cognitive function NL, Judgment/insight NL, Thought content NL Interpretation Diagnostics Lab Results InterpretationResultsRecent Impressions:RADIOLOGY - XR FOOT 3 + V LT 08/20 1959 Report Impression - Status: SIGNED Entered: 08/20/20222006 IMPRESSION: Acute comminuted and mildly displaced intra-articular fracture of the4th digit distal phalanx. Impression [facility]: [facility] [place] Imaging StatementRadiographic studies reviewed and considered in the medical decision-making. Point of Care TestingPulse Oximetry Pulse Ox % 98 On: Room air Interpretation Interpreted by me, Pulse oximetry normal Time 2025 Procedures Free Text Proc NotesFree Text Proc Notesgood pms/ rom pre and post splint Splint Applic - Fx Mgmt #1Text/Dict Noteleft foot Start Time 2020Time Spent (minutes) 5Procedure Performed by ED WOODEN FURNITURE POLISHER, NursePrecise Anatomic LocationL foot Non-Custom Immobilization UnabootDefinitive Fracture Care Pain control, SplintPost-Procedure/Complications Cap refill normal, Post splint vascular nl, Post splint neuro nl, Condition improved, Tolerated procedure well, Patient stable Re-Evaluation MDM Free Text MDM NotesFree Text MDM NotesPT comes in after he states a ladder fell on his left foot yesterday around 0800injuring his fourth toe. During assessment patient does have good PMS and ROM in his LLE. Should be noted the patient has an obvious toenail injury to his fourth left toe. Re-Evaluation/ProgressRe-Evaluation/ Progress Text/Dict Noterelaxed Time of Re-Eval 2025 Re-Eval Status Improved Post Splint Evaluation Cap refill < 2 seconds, Distal sensation intact, Distal motor func intact, No signs compartment synd Eval Following Treatment Pt. feels better Pain Re-Evaluation Pain improved Exam Post Tx - General Active, Alert, Appears non-toxic, Appears well, Vital signs stable, Capillary refill normal, Hydration normal Exam Post Tx - Sys Review Lungs clear Plan Post Re-Eval Plan discharge Compartment SyndromeThere are no signs or symptoms of compartment syndrome in the injured extremity at the time of this examination. Any pain the patient has is in proportion to the injury, the peripheral circulation is intact, capillary refill is not delayed, and there is no numbness, tingling or paresthesia. ED CourseMedication(s) OrderedMedication(s) Ordered:Central Nervous System Agents Sig/Guillermo Start time Last Medication Dose Route Stop Time Status Admin Ibuprofen 600 MG X1ED STA 08/20 1935 DC 08/20 PO 08/20 Serums, Toxoids, And Vaccines Sig/Guillermo Start time Last Medication Dose Route Stop Time Status Admin Diphtheria/Pertussis/ 0.5 ML X1ED STA 08/20 1934 DC 08/20 Tetanus Vacc IM 08/20 Differential DiagnosisDifferential Diagnosis Abrasion, Contusion, Fx stress Patient Discharge Departure Vital Signs/ConditionVital SignsFirst Documented: Result Date Time Pulse Ox 99 08/20 1931 B/P 112/70 08/20 1931 B/P Mean 83.8 08/20 1931 Temp 36.7 08/20 1931 Pulse 107 08/20 1931 Resp 18 08/20 1931 Last Documented: Result Date Time Pulse Ox 98 08/20 2118 B/P 122/73 08/20 2118 B/P Mean 89 08/20 2118 Pulse 102 08/20 2118 Resp 18 08/20 2118 Temp 36.7 08/20 1931 All vital signs available at the time of this entry have been reviewed. Condition Stable, Improved Clinical ImpressionClinical ImpressionPrimary Impression: Toe fracture, leftSecondary Impressions: Accident at workplace, Avulsed toenail, Need for Tdap vaccination Disposition DecisionDischarge )( Discharged to Home Yes )( Time 2026 )( Date 08/20/22 Discharge/Care PlanCounseled Regarding Diagnosis, Imaging studies, Prescriptions, Need for follow-up, When to return to EDRx Drug Database Reviewed YesPrescriptionsnaproxen (Auto) PrescriptionsCurrent Visit ScriptsNaproxen (Naprosyn) 500 MG PO BID PRN PRN PAIN Naproxen (Naprosyn) 500 MG PO BID PRN PRN PAIN #15 TABS Prescriptions Reviewed Risks, Benefits, Alternative treatmentPatient Instructions ED Fracture, Toe, Closed, ED RICEAdditional InstructionsPlease follow-up with podiatry as discussed and eat prior to taking naproxen in order to prevent stomach ulcersDeparture FormsWORK/SCHOOL EXCUSE VARIABLE Discharge NoteI have spoken with the patient and/or caregivers. I have explained the patient'scondition, diagnoses and treatment plan based on the information available to meat this time. I have answered the patient's and/or caregiver's questions and addressed any concerns. The patient and/or caregivers have as good an understanding of the patient's diagnosis, condition and treatment plan as can beexpected at this point. The vital signs have been stable. The patient's condition is stable and appropriate for discharge from the emergency department. The patient will pursue further outpatient evaluation with the primary care physician or other designated or consulting physician as outlined in the discharge instructions. The patient and/or caregivers are agreeable to this planof care and follow-up instructions have been explained in detail. The patient and/or caregivers have received these instructions in written format and have expressed an understanding of the discharge instructions. The patient and/or caregivers are aware that any significant change in condition or worsening of symptoms should prompt an immediate return to this or the closest emergency department or a call to 911. Extremity Inj Discharge NoteThe patient is discharged home with supportive care, a plan for pain control, and follow-up instructions that detail what to expect over the next 48 hours andwhat symptoms should prompt immediate return to the ED, including the symptoms of compartment syndrome. Follow-up instructions have been explained in detail tothe patient, and the instructions have been provided in written format. The patient is comfortable with the plan of care and has expressed an understanding of the discharge instructions. The patient is aware that any significant change in condition or worsening of symptoms should prompt an immediate call to the primary or designated physician. If that is not successful the patient should call or return to this or the closest emergency department or call 911. Quality MeasuresCare Coordination Adv care plan discussed Kranthi Gonzalez 08/26/22 0749:Patient Discharge Departure Discharge/Care PlanReferralsProvider Referral: Darnell Leach DPKevin Follow-Up: Call for appointment Notes: follow up as discussed Address: [address], [address] [place] [address] Supervising Physician Note MidLv Saw Pt AloneI have reviewed the PA/WOODEN FURNITURE POLISHER's note and plan of care. I was available for consultation as needed at all times during the patient's visit in the emergency department. I agree with the clinical impression, plan and disposition. at 2145 at 0749RPT #:[id number] OF REPORTSaint [facility] department [id number] for patient [id number] HCATB
[2024-02-14] MEDS ORDERED: ONDANSETRON 4 MG/2 ML VIAL ONE (23:25)
[2024-02-14] MEDS ORDERED: MORPHINE 4 MG/ML SYR ONE (23:25)
[2024-02-14] MEDS ORDERED: KETOROLAC 30 MG/ML INJ ONE (23:25)
[2024-02-14 23:37] LABS: Absolute Basophils 0.1 K/uL (0-0.5); Absolute Eosinophils 0.1 K/uL (0-0.5); Absolute Lymphocytes (CBC) 3.1 K/uL (0.7-4.9); Absolute Monocytes 0.7 K/uL (0.1-1.3); Absolute Neutrophil 4.7 K/uL (1.8-8.0); Basophils % 1.2 % (0-1.3); Eosinophils % 1.5 % (0-4.4); Hematocrit 37.7 % (39.6-49.0); Hemoglobin 13.1 g/dL (13.6-17.9); Lymphocytes % 35.4 % (15.3-44.8); MCH 32.9 pg (27.0-35.0); MCHC 34.6 g/dL (32.0-36.0); Monocytes % 8.3 % (3.3-12.3); Neutrophils % 53.6 % (41.7-73.7); Platelets 246 thou/uL (152-406); RBC Red Blood Cell Count 3.97 M/uL (4.33-5.43); Red Cell Distribution Width 13.6 % (12.1-15.2)
[2024-02-14 23:47] LABS: Sqamous Epithelial None Seen /HPF (None Seen); Urine Bacteria None Seen /HPF (<20); Urine Bilirubin NEGATIVE (Negative); Urine Blood Negative (Negative); Urine Clarity Clear (Clear); Urine Color Yellow (Yellow); Urine Culture Reflex Order NOT NEEDED; Urine Glucose NEGATIVE (Negative); Urine Ketones NEGATIVE (Negative); Urine Microscopic Reflex YN ORDER UMIC; Urine Mucus Slight /HPF (None Seen); Urine Nitrite NEGATIVE (Negative); Urine Protein 1+ (Negative); Urine RBC None Seen /HPF (None Seen); Urine Urobilinogen 2+ (Normal); Urine WBC <5 /HPF (<5); Urine pH 7.5 (5.0-7.0)
[2024-02-14 23:49] LABS: ALT/SGPT 20 U/L (16-61); Albumin 3.8 g/dL (3.4-5.0); Albumin/Globulin Ratio 1.1 (1.1-1.8); Alkaline Phosphatase 73 U/L (45-117); Anion Gap 7.5 mEq/L (5.0-15.0); BUN Blood Urea Nitrogen 10 mg/dL (7-18); Bicarbonate 25 mEq/L (21-32); Bilirubin Total 0.3 mg/dL (0.2-1.0); Globulin 3.4 g/dL (2.3-3.5); Glomerular Filtration Rate 116 ml/min (=/>90); Glucose Level 121 mg/dL (74-106); Lipase 24 U/L (13-75); Potassium 3.5 mEq/L (3.5-5.1); Protein, Total 7.2 g/dL (6.4-8.2); Sodium Level 138 mEq/L (136-145)
[2024-02-15 00:25] LABS: AST/SGOT < 10 U/L (15-37)
--- NOTE | 2024-02-15 01:50 | EDPHYS ---
Physician Documentation [facility] Name: Benigno Oden Age: 33 yrs Sex: Male : 1990 Arrival Date: 02/14/2024 Time: 22:43 Bed 19 Private MD: ED Physician Yahir Long HPI: 02/13 23:02 This 33 yrs old Male presents to ER via Ambulatory with complaints of PAIN IN ec2 RIB CAGE. 23:02 Patient arrives today for evaluation of left upper abdominal pain along with left lower ec2 rib pain. Patient reports the pain started approximately 12 hours prior to arrival. Patient reports no specific injuries or trauma. Denies any nausea or vomiting, denies any previous abdominal surgeries. Patient reports no histories of PEs or ACS. Patient reports he has taken BC powder for the symptoms with minimal alleviation symptoms.. Historical: - Allergies: 22:55 No Known Allergies; bm8 - Home Meds: 22:55 None [Active]; bm8 - PMHx: 22:55 None; bm8 - PSHx: 22:55 None; bm8 - Immunization history:: Adult Immunizations up to date. - Infectious Disease History:: Denies. - Social history:: Smoking status: Reported history of juuling and/or vaping. ROS: 23:03 Constitutional: as per hpi ec2 Exam: 23:03 Constitutional: GEN: NAD Head: atraumatic Eyes: EOMI Ears: External ears are ec2 normal. CV: regular rate LUNGS: no respiratory distress ABD: non-distended, left upper abdominal TTP, no guarding, not rigid. SKIN: no evidence of rashes MSK: no evidence of trauma, left anterior/lateral rib TTP, no deformities or crepitus, no overlying skin changes appreciated. NEURO: moves all extremities equally Vital Signs: 22:53 BP 148 / 99; Pulse 78; Resp 17; Temp 98.8; Pulse Ox 100% ; Weight 81.65 kg; Height 6 bm8 ft. 3 in. ; Pain 10/10; 02/14 00:00 BP 123 / 84; Pulse 65; Resp 16 S; Pulse Ox 100% on R/A; jw7 01:00 BP 124 / 80; Pulse 67; Resp 16 S; Pulse Ox 100% on R/A; jw7 02:01 BP 124 / 83; Pulse 68; Resp 17; Temp 98.5; Pulse Ox 100% on R/A; Pain 3/10; bm8 02/13 22:53 Body Mass Index 22.50 (81.65 kg, 190.5 cm) 8 02/13 22:53 Pain Scale: Adult bm8 02:01 Pain Scale: Adult bm8 Savannah Coma Score: 02:01 Eye Response: spontaneous(4). Motor Response: obeys commands(6). Verbal Response: bm8 oriented(5). Total: 15. MDM: 02/13 22:54 Patient medically screened. ec2 23:03 Data reviewed: vital signs. ED course: Patient arrives today for evaluation of left ec2 upper abdominal pain along with left lower rib pain. Examination remarkable for abdominal and musculoskeletal findings as noted above. Will obtain lab work, CT imaging and treat the patient with morphine. Differential diagnosis includes process such as ureteral stone, rib contusion, lung infection.. 02/14 00:38 ED course: Metabolic profile with appropriate electrolytes and renal function. Lipase ec2 within normal ranges. . 00:51 ED course: Chest x-ray and rib x-ray independently reviewed and interpreted by me, ec2 shows no evidence of bony fracture or acute intrathoracic process. . 01:49 ED course: CT of the chest abdomen pelvis shows no acute pathology, subacute fractures ec2 noted at T12 and L1 1, no specific back TTP. Will discharge home with Robaxin, suspect rib contusion. Return precautions given. . 01:50 ED course: MDM: Differential diagnosis as documented above in ED course All lab tests ec2 ordered and reviewed as documented above. Independent interpretation of imaging: x-rays as above Parenteral controlled substances: Yes . 02/13 23:02 Order name: CBC with Diff; Complete Time: 23:55 2 02/13 23:02 Order name: CMP; Complete Time: 00:38 2 02/13 23:02 Order name: Lipase; Complete Time: 00:38 2 02/13 23:02 Order name: Urinalysis w/ reflexes; Complete Time: 23:55 2 02/13 22:56 Order name: CXR XRAY 2 02/13 22:56 Order name: Ribs Left XRAY 2 02/13 23:02 Order name: CT Chest, Abdomen, Pelvis - W/Contrast 2 02/13 23:02 Order name: IV Saline Lock; Complete Time: 23:13 ec2 02/13 23:02 Order name: Labs collected and sent; Complete Time: 23:13 ec2 Administered Medications: 02/13 23:34 Drug: TORadol - Ketorolac IVP 15 mg IVP once Route: IVP; Site: right forearm; jw7 02/14 02:06 Follow up: Response: No adverse reaction bm8 02/13 23:34 Drug: Ondansetron IVP 4 mg IVP once; over 2 minutes Route: IVP; Site: right forearm; jw7 02/14 02:06 Follow up: Response: No adverse reaction bm8 02/13 23:34 Drug: morphine IVP or IV 4 mg IVP once over 4 mins Route: IVP; Infused Over: 4 mins; jw7 Site: right forearm; 02/14 02:06 Follow up: Response: No adverse reaction bm8 Disposition Summary: 02/15/24 01:49 Discharge Ordered Notes: Location: Home ec2 Condition: Stable ec2 Diagnosis - Anemia, unspecified ec2 - Sprain of ribs ec2 Followup: ec2 - With: Private Physician - When: - Reason: Recheck today's complaints, Re-evaluation by your physician Discharge Instructions: - Discharge Summary Sheet ec2 - Rib Contusion ec2 Forms: - Medication Reconciliation Form ec2 - Antibiotic Education ec2 - Prescription Opioid Use ec2 - Patient Portal Instructions ec2 - Leadership Thank You Letter ec2 Prescriptions: - methocarbamol 500 mg Oral tablet - take 2 tablets ORAL route 4 times per day; 20 tablet; Refills: 0, Product ec2 Selection Permitted Signatures: Dispatcher [employer] Xiomara Delong RN RN jw7 Yahir Long MD MD ec2 Dedrick Palmer RN RN bm8 Corrections: (The following items were deleted from the chart) 02/13 22:57 22:57 Chest Single View+RAD.RAD.BRZ ordered. EDMS EDMS 22:57 22:57 Ribs Left+RAD.RAD.BRZ ordered. EDMS EDMS 23:02 23:02 Chest Abdomen Pelvis W Con+CT.RAD.BRZ ordered. EDMS EDMS
--- NOTE | 2024-02-15 01:50 | ER ---
Nurse's Notes [facility] Name: Benigno Oden Age: 33 yrs Sex: Male : 1990 Arrival Date: 02/14/2024 Time: 22:43 Bed 19 Private MD: Diagnosis: Anemia, unspecified;Sprain of ribs Presentation: 02/13 22:53 Chief complaint: Patient states: I HAVE LEFT SIDED RIB PAIN THAT STARTED FOR NO REASON bm8 AROUND 1100. Coronavirus screen: Vaccine status: Patient reports receiving the 2nd dose of the covid vaccine. Ebola Screen: Patient negative for fever greater than or equal to 101.5 degrees Fahrenheit, and additional compatible Ebola Virus Disease symptoms Patient denies exposure to infectious person. Patient denies travel to an Ebola-affected area in the 21 days before illness onset. No symptoms or risks identified at this time. Initial Sepsis Screen: Does the patient meet any 2 criteria? No. Patient's initial sepsis screen is negative. Does the patient have a suspected source of infection? No. Patient's initial sepsis screen is negative. Risk Assessment: Do you want to hurt yourself or someone else? Patient reports no desire to harm self or others. Onset of symptoms was February 14, 2024 at 11:00. 22:53 Method Of Arrival: Ambulatory bm8 22:53 Acuity: EVERARDO 3 bm8 Triage Assessment: 22:55 General: Appears in no apparent distress. uncomfortable, Behavior is calm, cooperative, bm8 appropriate for age. Pain: Complains of pain in LEFT SIDED LOWER ANTERIOR AND LATERAL RIB PAIN Pain does not radiate. Pain currently is 10 out of 10 on a pain scale. Quality of pain is described as sharp, shooting. EENT: No deficits noted. No signs and/or symptoms were reported regarding the EENT system. Neuro: No deficits noted. Level of Consciousness is awake, alert, obeys commands, Oriented to person, place, time, situation, Appropriate for age. Cardiovascular: Denies chest pain, Heart tones S1 S2 present Capillary refill < 3 seconds Patient's skin is warm and dry. Respiratory: Reports pain with respiration Airway is patent Trachea midline Respiratory effort is even, unlabored, shallow, Respiratory pattern is regular, symmetrical, Breath sounds are clear bilaterally. TENDER WITH PALPATION the patient has severe shortness of breath. GI: No deficits noted. No signs and/or symptoms were reported involving the gastrointestinal system. : No deficits noted. No signs and/or symptoms were reported regarding the genitourinary system. Derm: No deficits noted. No signs and/or symptoms reported regarding the dermatologic system. Musculoskeletal: No deficits noted. No signs and/or symptoms reported regarding the musculoskeletal system. Historical: - Allergies: 22:55 No Known Allergies; bm8 - Home Meds: 22:55 None [Active]; bm8 - PMHx: 22:55 None; bm8 - PSHx: 22:55 None; bm8 - Immunization history:: Adult Immunizations up to date. - Infectious Disease History:: Denies. - Social history:: Smoking status: Reported history of juuling and/or vaping. Screenin:15 [facility] ED Fall Risk Assessment (Adult) History of falling in the last 3 months, bm8 including since admission No falls in past 3 months (0 pts) Confusion or Disorientation No (0 pts) Intoxicated or Sedated No (0 pts) Impaired Gait No (0 pts) Mobility Assist Device Used No (0 pt) Altered Elimination No (0 pt) Score/Fall Risk Level 0 - 2 = Low Risk Oriented to surroundings, Maintained a safe environment, Educated pt \T\ family on fall prevention, incl call for assistance when getting out of bed. Abuse screen: Denies threats or abuse. Nutritional screening: No deficits noted. Tuberculosis screening: No symptoms or risk factors identified. Assessment: 23:20 General: Appears in no apparent distress. uncomfortable, Behavior is calm, cooperative, jw7 appropriate for age. 23:20 Pain: Complains of pain in Left side lower anterior and lateral side/rib Pain does not jw7 radiate. Pain currently is 10 out of 10 on a pain scale. Quality of pain is described as sharp, shooting, Pain began gradually, Is continuous. Neuro: Level of Consciousness is awake, alert, obeys commands, Oriented to person, place, time, situation, Appropriate for age. Cardiovascular: Heart tones S1 S2 present Capillary refill < 3 seconds Clubbing of nail beds is absent JVD is absent Patient's skin is warm and dry. Respiratory: Airway is patent Trachea midline Respiratory effort is even, unlabored, Respiratory pattern is regular, symmetrical. GI: GI: Abdomen is flat, non-distended, Bowel sounds present X 4 quads. Abd is soft and non tender X 4 quads. : No deficits noted. No signs and/or symptoms were reported regarding the genitourinary system. EENT: No deficits noted. No signs and/or symptoms were reported regarding the EENT system. Derm: Skin is intact, is healthy with good turgor, Skin is dry, Skin is normal, Skin temperature is warm. Musculoskeletal: Circulation, motion, and sensation intact. Range of motion: intact in all extremities. 02/14 00:20 Reassessment: Patient appears in no apparent distress at this time. No changes from [facility] previously documented assessment. Patient and/or family updated on plan of care and expected duration. Pain level reassessed. Patient is alert, oriented x 3, equal unlabored respirations, skin warm/dry/pink. 01:20 Reassessment: Patient appears in no apparent distress at this time. Patient and/or jw7 family updated on plan of care and expected duration. Pain level reassessed. Patient is alert, oriented x 3, equal unlabored respirations, skin warm/dry/pink. Patient states symptoms have improved. 02:01 Reassessment: Patient appears in no apparent distress at this time. Patient and/or bm8 family updated on plan of care and expected duration. Pain level reassessed. Patient is alert, oriented x 3, equal unlabored respirations, skin warm/dry/pink. Patient states feeling better. Patient states symptoms have improved. Vital Signs: 02/13 22:53 BP 148 / 99; Pulse 78; Resp 17; Temp 98.8; Pulse Ox 100% ; Weight 81.65 kg; Height 6 bm8 ft. 3 in. ; Pain 10/10; 02/14 00:00 BP 123 / 84; Pulse 65; Resp 16 S; Pulse Ox 100% on R/A; 7 01:00 BP 124 / 80; Pulse 67; Resp 16 S; Pulse Ox 100% on R/A; [facility] 02:01 BP 124 / 83; Pulse 68; Resp 17; Temp 98.5; Pulse Ox 100% on R/A; Pain 3/10; 8 02/13 22:53 Body Mass Index 22.50 (81.65 kg, 190.5 cm) [facility] 02/13 22:53 Pain Scale: Adult bm8 02:01 Pain Scale: Adult 8 Savannah Coma Score: 02:01 Eye Response: spontaneous(4). Motor Response: obeys commands(6). Verbal Response: bm8 oriented(5). Total: 15. ED Course: 02/13 22:45 Patient arrived in ED. jj6 22:54 Yahir Long MD is Attending Physician. ec2 22:55 Triage completed. bm8 22:55 Arm band placed on right wrist. bm8 23:10 Xiomara Rosales RN is Primary Nurse. jw7 23:15 Patient has correct armband on for positive identification. Bed in low position. Call bm8 light in reach. Side rails up X 1. Client placed on continuous cardiac and pulse oximetry monitoring. NIBP monitoring applied. Pulse ox on. NIBP on. Door closed. Noise minimized. Lights dimmed. Warm blanket given. Verbal reassurance given. Head of bed elevated. 23:15 Initial lab(s) drawn, by me, sent to lab. Urine collected: clean catch specimen, clear. bm8 Inserted saline lock: 18 gauge in right forearm, using aseptic technique. Blood collected. 23:56 CXR XRAY In Process Unspecified. EDMS 23:56 Ribs Left XRAY In Process Unspecified. EDMS 02/14 00:46 CT Chest, Abdomen, Pelvis - W/Contrast In Process Unspecified. EDMS 02:01 Provided Education on: POST ER CARE. bm8 02:01 No provider procedures requiring assistance completed. IV discontinued, intact, bm8 bleeding controlled, No redness/swelling at site. Pressure dressing applied. Administered Medications: 02/13 23:34 Drug: TORadol - Ketorolac IVP 15 mg IVP once Route: IVP; Site: right forearm; jw7 02/14 02:06 Follow up: Response: No adverse reaction bm8 02/13 23:34 Drug: Ondansetron IVP 4 mg IVP once; over 2 minutes Route: IVP; Site: right forearm; jw7 02/14 02:06 Follow up: Response: No adverse reaction bm8 02/13 23:34 Drug: morphine IVP or IV 4 mg IVP once over 4 mins Route: IVP; Infused Over: 4 mins; jw7 Site: right forearm; 02/14 02:06 Follow up: Response: No adverse reaction bm8 Medication: 02/13 23:15 VIS not applicable for this client. bm8 Outcome: 02/14 01:49 Discharge ordered by . ec2 02:01 Discharged to home ambulatory, bm8 02:01 Condition: stable 02:01 Discharge instructions given to patient, Instructed on discharge instructions, follow up and referral plans. no drinking with medication, no driving heavy equipment, medication usage, safety practices, Demonstrated understanding of instructions, follow-up care, medications, Prescriptions given X 1, 02:06 Patient left the ED. bm8 Signatures: Dispatcher [employer] EDCA Lucille Ortizj6 Xiomara Rosales, RN RN jw7 Yahir Long MD MD ec2 Dedrick Palmer RN RN bm8 Corrections: (The following items were deleted from the chart) 00:16 02/13 23:20 General: Appears in no apparent distress. uncomfortable, Behavior is calm, jw7 cooperative, appropriate for age, jw7
[2024-02-15 02:41] VITALS: BP 124/83; TEMP 98.5; O2SAT 100
--- NOTE | 2024-02-15 10:57 | RAD REPORT ---
EXAM DESCRIPTION: CT Chest, Abdomen and Pelvis With Intravenous Contrast CLINICAL HISTORY: The patient is 33 years old and is Male; lower rib pain, L upper abd pain TECHNIQUE: Axial computed tomography images of the chest, abdomen and pelvis with intravenous contra st. Sagittal and coronal reformatted images were created and reviewed. This CT exam was performed using one or more of the following dose reduction techniques: automated exposure control, adjustme nt of the mA and/or kV according to patient size, and/or use of iterative reconstruction technique. COMPARISON: No relevant prior studies available. FINDINGS: CHEST: LUNGS: The lungs are clear of focal opacity, mass, or consolidation. PLEURAL SPACE: Unremarkable. No significant effusion. No pneumothorax. HEART: No cardiomegaly. No pericardial effusion. ABDOMEN: LIVER: Unremarkable. No mass. GALLBLADDER AND BILE DUCTS: The gallbladder is contracted. No calcified gallstones or ductal dila tation is seen. PANCREAS: No ductal dilation. No mass. SPLEEN: Unremarkable. ADRENALS: Unremarkable. No mass. KIDNEYS AND URETERS: Unremarkable. The kidneys enhance symmetrically. No obstructing renal or ure teral calculus is seen. No hydronephrosis or hydroureter. No perinephric fluid or stranding. STOMACH AND BOWEL: The stomach is minimally distended with food contents. The small bowel is norm al in caliber. Stool is present throughout the colon. There is no mucosal thickening or evidence of o bstruction. PELVIS: APPENDIX: The appendix is surgically absent. BLADDER: The bladder is moderately distended. REPRODUCTIVE: Unremarkable as visualized. CHEST, ABDOMEN and PELVIS: INTRAPERITONEAL SPACE: Unremarkable. No significant fluid collection. No free air. BONES/JOINTS: Subtle acute compression deformities of the superior endplates of T12 and L1 are no augusto. There is no significant height loss or evidence of retropulsion. Chronic Schmorl's node at the p osterior superior aspect of the endplate T12 is present. Remaining vertebral body heights and alignme nt are maintained. There is no other acute fracture of the visualized axial and appendicular skeleton . SOFT TISSUES: The soft tissues are normal. VASCULATURE: Calcified phleboliths are present within the pelvis. No aortic aneurysm. LYMPH NODES: Unremarkable. No enlarged lymph nodes. IMPRESSION: 1. No evidence of solid organ injury on this contrasted CT of the chest, abdomen, and pelvis. 2. Subtle acute compression fractures of the superior endplates of T12 and L1. There is no signific ant height loss of retropulsion. Electronically signed by: Leatha Smalls MD 02/15/2024 01:34 AM CDT RP Due to temporary technical issues with the PACS/Fluency reporting system, reports are being signed by the in house radiologist without review as a courtesy to ensure prompt reporting. The interpreting r adiologist is fully responsible for the content of the report.
--- NOTE | 2024-02-15 11:42 | RAD REPORT ---
EXAM DESCRIPTION: ONE VIEW CHEST X-RAY, 4 VIEWS OF THE LEFT RIBS CLINICAL HISTORY: L rib pain. 33-year-old male. COMPARISON: No relevant imaging studies FINDINGS: A single PA view of the chest, and 4 views of the left ribs were obtained. No consolidation, pulmonary venous hypertension, pleural effusion, or pneumothorax. Cardiac silhouett e is normal in size. No displaced, or discrete nondisplaced left rib fracture. IMPRESSION: 1. No acute cardiopulmonary process. 2. No left rib fracture. Electronically signed by: Blair Berg MD 02/15/2024 12:33 AM CDT Due to temporary technical issues with the PACS/Fluency reporting system, reports are being signed by the in house radiologist without review as a courtesy to ensure prompt reporting. The interpreting r adiologist is fully responsible for the content of the report.
--- NOTE | 2024-02-15 12:04 | RAD REPORT ---
EXAM DESCRIPTION: ONE VIEW CHEST X-RAY, 4 VIEWS OF THE LEFT RIBS CLINICAL HISTORY: L rib pain. 33-year-old male. COMPARISON: No relevant imaging studies FINDINGS: A single PA view of the chest, and 4 views of the left ribs were obtained. No consolidation, pulmonary venous hypertension, pleural effusion, or pneumothorax. Cardiac silhouett e is normal in size. No displaced, or discrete nondisplaced left rib fracture. IMPRESSION: 1. No acute cardiopulmonary process. 2. No left rib fracture. Electronically signed by: Blair Berg MD 02/15/2024 12:33 AM CDT Due to temporary technical issues with the PACS/Fluency reporting system, reports are being signed by the in house radiologist without review as a courtesy to ensure prompt reporting. The interpreting r adiologist is fully responsible for the content of the report.
== END 2024-02-15 02:06 | disposition home or self-care (01) ==
LOC: ER 22:43
DX: S23.41XA Sprain of ribs, initial encounter (principal); D64.9 Anemia, unspecified
CPT/HCPCS: 85025; 81001; 36415; 83690; 80053; 71260; 74177; 71045; 71100; 96375; 96374; 99284; Q9967; J2405